=== PATIENT | female | born 1995 | race Caucasian/White ===

== ENCOUNTER 2016-12-24 23:20 | Emergency (ER) | payer SELFPAY ==
[2016-12-25] MEDS ORDERED: ACETAMINOPHEN 325 MG TABLET PO ONE (00:40)
[2016-12-25] MEDS ORDERED: MORPHINE SULFATE 10 MG/ML INJ IV ONE ×2 (00:40→03:38)
[2016-12-25] MEDS ORDERED: ONDANSETRON HCL INJ/PF 4 MG/2 ML SDV IV ONE (00:40)
[2016-12-25] MEDS ORDERED: NORMAL SALINE 1000 ML 1,000 ML IV ONE ×2 (00:41→03:44)
--- NOTE | 2016-12-25 00:45 | ER Document Report ---
ED GI/ - General Chief Complaint: Flank Pain Stated Complaint: ABDOMINAL PAIN Time Seen by Provider: 12/25/16 00:34 Notes: Patient is a 21-year-old female comes emergency department for chief complaint of right flank pain, dysuria, generalized abdominal pain, vomiting, and fever. She states she has had a fever and vomiting for the past 3 days with minimal ability to keep down any fluids. She states she had a similar kidney infection back in March of this year but none prior to that. She denies any daily medications, denies any surgeries, LMP within the past month, she is sexually active with her boyfriend, she does report a whitish vaginal discharge in addition to her symptoms. - Related Data Allergies/Adverse Reactions: No Known Allergies Allergy (Unverified 12/25/16 00:15) Past Medical History - General Information source: Patient - Social History Smoking Status: Never Smoker Frequency of alcohol use: None Drug Abuse: None Lives with: Family Family History: Reviewed & Not Pertinent - Medical History Medical History: Negative Renal/ Medical History: Denies: Hx Peritoneal Dialysis Surgical Hx: Negative - Immunizations Immunizations up to date: Yes Hx Diphtheria, Pertussis, Tetanus Vaccination: Yes Review of Systems - Review of Systems Constitutional: See HPI EENT: No symptoms reported Cardiovascular: No symptoms reported Respiratory: No symptoms reported Gastrointestinal: See HPI Genitourinary: See HPI Female Genitourinary: See HPI Musculoskeletal: No symptoms reported Skin: No symptoms reported Hematologic/Lymphatic: No symptoms reported Neurological/Psychological: No symptoms reported Physical Exam - Vital signs Vitals: Temp Pulse Resp BP Pulse Ox 100.0 F 113 H 18 130/85 H 99 12/25/16 00:12 12/25/16 00:12 12/25/16 00:12 12/25/16 00:12 12/25/16 00:12 Interpretation: Normal - General General appearance: Other - Patient flushed and somewhat ill-appearing - HEENT Head: Normocephalic, Atraumatic Eyes: Normal Pupils: PERRL - Respiratory Respiratory status: No respiratory distress Chest status: Nontender Breath sounds: Normal Chest palpation: Normal - Cardiovascular Rhythm: Regular, Tachycardia Heart sounds: Normal auscultation, S1 appreciated, S2 appreciated Murmur: No - Abdominal Inspection: Normal Distension: No distension Bowel sounds: Normal Tenderness: Tender - Mild generalized abdominal tenderness, nonspecific, no guarding Organomegaly: No organomegaly - Back Back: Tender, CVA tenderness - Right-sided CVA tenderness - Extremities General upper extremity: Normal inspection, Nontender, Normal color, Normal ROM , Normal temperature General lower extremity: Normal inspection, Nontender, Normal color, Normal ROM , Normal temperature, Normal weight bearing. No: Adam's sign - Neurological Neuro grossly intact: Yes Cognition: Normal Orientation: AAOx4 Pilgrim Coma Scale Eye Opening: Spontaneous Nelda Coma Scale Verbal: Oriented Pilgrim Coma Scale Motor: Obeys Commands Nelda Coma Scale Total: 15 Speech: Normal Motor strength normal: LUE, RUE, LLE, RLE Sensory: Normal - Psychological Associated symptoms: Normal affect, Normal mood - Skin Skin Temperature: Warm Skin Moisture: Dry Skin Color: Flushed Course - Re-evaluation Re-evalutation: Patient febrile, tachycardic, has right-sided CVA tenderness, mild generalized abdominal pain, she is ill-appearing. After IV fluids, Tylenol, pain medication, antibiotics patient is smiling, well- appearing, states she feels much better. She is tolerating p.o. CBC shows leukocytosis without bandemia, chemistry generally unremarkable, lactic acid is not elevated, Urinalysis shows specific infection with nitrates, white blood cells, bacteria. Urine culture placed. Given Rocephin already. Pelvic examination unremarkable no evidence of PID. Low suspicion of obstructive stone based on patient's history of the same, lack of bleeding, lack of personal or family history of kidney stones. I discussed with patient and mother in detail. Request is to go home. Because patient is young, otherwise healthy, no evidence of sepsis, stable vital signs, patient will be discharged with cephalexin, symptom management, return precautions. Patient and mother state understanding and agreement. - Vital Signs Vital signs: Temp Pulse Resp BP Pulse Ox 100 F 113 H 20 121/74 100 12/25/16 04:48 12/25/16 00:12 12/25/16 04:48 12/25/16 04:48 12/25/16 04:48 - Laboratory Result Diagrams: 12/25/16 00:49 12/25/16 00:49 Laboratory results interpreted by me: 12/25/16 12/25/16 12/25/16 00:49 00:49 00:49 WBC 17.0 H Lymphocytes % 10.3 L Monocytes % 17.5 H Absolute Neutrophils 12.2 H Absolute Monocytes 3.0 H Total Protein 8.3 H Urine Protein 30 H Urine Ketones TRACE H Urine Blood LARGE H Urine Nitrite POSITIVE H Ur Leukocyte Esterase SMALL H Discharge - Discharge Clinical Impression: Fever Qualifiers: Fever type: unspecified Qualified Code(s): R50.9 - Fever, unspecified Vomiting Qualifiers: Vomiting type: unspecified Vomiting Intractability: non-intractable Nausea presence: with nausea Qualified Code(s): R11.2 - Nausea with vomiting, unspecified Urinary tract infection Qualifiers: Urinary tract infection type: site unspecified Hematuria presence: without hematuria Qualified Code(s): N39.0 - Urinary tract infection, site not specified Condition: Stable Disposition: HOME, SELF-CARE Additional Instructions: Your workup shows a urinary tract infection, appears to be a kidney infection ( pyelonephritis), please take the Keflex antibiotics as prescribed, take the Phenergan if needed for nausea, take the morphine if needed for pain, take Tylenol for chills/fever, rest and drink plenty of fluids. Follow-up with primary care. Return to the emergency department for any concerning or worsening symptoms including returned or uncontrolled vomiting, worsening pain, spiking fever, or any other concerning symptoms. Prescriptions: Morphine Sulfate [Morphine Ir 15 Mg Tablet] 15 mg PO Q4HP PRN #12 tablet PRN Reason: Cephalexin Monohydrate [Keflex 500 mg Capsule] 500 mg PO QID #28 capsule Promethazine HCl [Phenergan 25 mg Tablet] 1 - 2 tab PO Q6H PRN #15 tablet PRN Reason: Forms: Return to Work
[2016-12-25 01:14] LABS: ABSOLUTE BASOPHILS # (AUTO) 0.1 10^3/uL (0.0-0.2); ABSOLUTE EOSINOPHILS # (AUTO) 0.1 10^3/uL (0.0-0.6); ABSOLUTE LYMPHOCYTES (AUTO) 1.7 10^3/uL (0.5-4.7); ABSOLUTE NEUT (AUTO) 12.2 10^3/uL (1.7-8.2); BASOPHILS % (AUTO) 0.3 % (0-2); EOSINOPHILS % (AUTO) 0.3 % (0-6); HEMATOCRIT 41.8 % (36.0-47.0); HGB HCT DIFFERENCE 0.2; LYMPHOCYTES % (AUTO) 10.3 % (13-45); MEAN CORPUSCULAR HEMOGLOBIN 29.8 pg (27.0-33.4); MEAN CORPUSCULAR HGB CONC 33.5 g/dL (32.0-36.0); MEAN CORPUSCULAR VOLUME 89 fl (80-97); MONOCYTES % (AUTO) 17.5 % (3-13); RED CELL DISTRIBUTION WIDTH 13.6 % (11.5-14.0); SEGMENTED NEUTROPHILS % (AUTO) 71.6 % (42-78)
[2016-12-25 01:23] LABS: ALANINE AMINOTRANSFERASE 13 U/L (9-52); ALBUMIN 4.6 g/dL (3.5-5.0); ALKALINE PHOSPHATASE 61 U/L (38-126); ANION GAP 12 (5-19); ASPARTATE AMINO TRANSFERASE 17 U/L (14-36); BILIRUBIN,DIRECT 0.4 mg/dL (0.0-0.4); BILIRUBIN,TOTAL 0.7 mg/dL (0.2-1.3); BLOOD UREA NITROGEN 15 mg/dL (7-20); CALCIUM 9.3 mg/dL (8.4-10.2); CARBON DIOXIDE 28 mmol/L (22-30); CHLORIDE 104 mmol/L (98-107); CREATININE RESULT 0.95 mg/dL (0.52-1.25); GLUCOSE 105 mg/dL (75-110); POTASSIUM 3.9 mmol/L (3.6-5.0); SODIUM 143.8 mmol/L (137-145); TOTAL PROTEIN 8.3 g/dL (6.3-8.2)
[2016-12-25 01:28] LABS: APPEARANCE,URINE SLIGHTLY-CLOUDY; BILIRUBIN,URINE NEGATIVE (NEGATIVE); GLUCOSE, URINE NEGATIVE (NEGATIVE); KETONES,URINE TRACE mg/dL (NEGATIVE); LEUKOCYTE ESTERASE,URINE SMALL (NEGATIVE); NITRITE,URINE POSITIVE (NEGATIVE); PROTEIN,URINE 30 mg/dL (NEGATIVE); URINE SPECIFIC GRAVITY 1.014; UROBILINOGEN,URINE NEGATIVE mg/dL (<2.0)
[2016-12-25 02:00] LABS: VENOUS BLOOD BASE EXCESS 0.8 mmol/L; VENOUS BLOOD HCO3 26.7 mmol/L (20-32); VENOUS BLOOD PCO2 47.1 mmHg (35-63); VENOUS BLOOD PH 7.37 (7.30-7.42)
[2016-12-25] MEDS ORDERED: CEFTRIAXONE 1 GM/D5W RTU 1 GM/50 ML RTUPB IV ONE (02:14)
[2016-12-25 03:15] LABS: CHLAM PCR NOT DETECTED (NOT DETECT)
[2016-12-25 04:53] VITALS: BP 121/74
== END 2016-12-25 04:53 | disposition home or self-care (01) ==
LOC: ER 23:20
DX: N39.0 Urinary tract infection, site not specified (principal); R10.84 Generalized abdominal pain; R11.10 Vomiting, unspecified; R50.9 Fever, unspecified
CPT/HCPCS: 96376; 99284; 96361; 96374; 96375; 36415; 87040; 87086; 87210; 85025; 81025; 87088; 80053; 81001; 87491; 87591; 82803; 83605; J2270; J2405; J7030; J0696; 87186

== ENCOUNTER 2017-05-29 13:55 | Emergency (ER) | payer MEDICAID ==
[2017-05-29 14:10] VITALS: BP 119/78
--- NOTE | 2017-05-29 15:09 | ER Document Report ---
ED Medical Screen (RME) - General Chief Complaint: Vaginal Bleeding Stated Complaint: ABDOMINAL CRAMPS Time Seen by Provider: 05/29/17 15:07 Notes: Patient is presenting with mild abdominal cramping and leakage of fluid. She states she is approximately 18 weeks . She states she had a normal ultrasound at 13 weeks. She states this is her first . [facility] but has not yet gone for her first appointment. TRAVEL OUTSIDE OF THE [place] IN LAST 30 DAYS: No - Related Data Allergies/Adverse Reactions: No Known Allergies Allergy (Verified 05/29/17 13:55) Past Medical History - Social History Chew tobacco use (# tins/day): No Frequency of alcohol use: None Drug Abuse: None Renal/ Medical History: Denies: Hx Peritoneal Dialysis - Immunizations Immunizations up to date: Yes Hx Diphtheria, Pertussis, Tetanus Vaccination: Yes Physical Exam - Vital signs Vitals: Temp Pulse Resp BP Pulse Ox 98.1 F 95 14 119/78 100 05/29/17 14:10 05/29/17 14:10 05/29/17 14:10 05/29/17 14:10 05/29/17 14:10 Course - Vital Signs Vital signs: Temp Pulse Resp BP Pulse Ox 98.1 F 95 14 119/78 100 05/29/17 14:10 05/29/17 14:10 05/29/17 14:10 05/29/17 14:10 05/29/17 14:10
[2017-05-29 16:07] LABS: ABSOLUTE EOSINOPHILS # (AUTO) 0.1 10^3/uL (0.0-0.6); ABSOLUTE LYMPHOCYTES (AUTO) 2.1 10^3/uL (0.5-4.7); ABSOLUTE MONOCYTES (AUTO) 0.6 10^3/uL (0.1-1.4); ABSOLUTE NEUT (AUTO) 8.5 10^3/uL (1.7-8.2); BASOPHILS % (AUTO) 0.4 % (0-2); EOSINOPHILS % (AUTO) 0.7 % (0-6); HEMATOCRIT 37.7 % (36.0-47.0); HEMOGLOBIN 12.7 g/dL (12.0-15.5); LYMPHOCYTES % (AUTO) 18.3 % (13-45); MEAN CORPUSCULAR HEMOGLOBIN 29.9 pg (27.0-33.4); MEAN CORPUSCULAR HGB CONC 33.8 g/dL (32.0-36.0); MEAN CORPUSCULAR VOLUME 89 fl (80-97); MONOCYTES % (AUTO) 5.5 % (3-13); PLATELET COUNT 279 10^3/uL (150-450); RED BLOOD COUNT 4.26 10^6/uL (3.72-5.28); RED CELL DISTRIBUTION WIDTH 13.1 % (11.5-14.0); SEGMENTED NEUTROPHILS % (AUTO) 75.1 % (42-78); TOTAL CELLS COUNTED % (AUTO) 100 %; WHITE BLOOD COUNT 11.4 10^3/uL (4.0-10.5)
[2017-05-29 16:26] LABS: ALANINE AMINOTRANSFERASE 28 U/L (9-52); ALBUMIN 4.6 g/dL (3.5-5.0); ALKALINE PHOSPHATASE 37 U/L (38-126); ANION GAP 11 (5-19); ASPARTATE AMINO TRANSFERASE 20 U/L (14-36); BILIRUBIN,DIRECT 0.1 mg/dL (0.0-0.4); BILIRUBIN,TOTAL 0.4 mg/dL (0.2-1.3); BLOOD UREA NITROGEN 6 mg/dL (7-20); CARBON DIOXIDE 25 mmol/L (22-30); CHLORIDE 103 mmol/L (98-107); GLUCOSE 76 mg/dL (75-110); SODIUM 139.1 mmol/L (137-145); TOTAL PROTEIN 7.6 g/dL (6.3-8.2)
--- NOTE | 2017-05-29 17:28 | ER Document Report ---
ED GI/ - General Mode of Arrival: Ambulatory Information source: Patient TRAVEL OUTSIDE OF THE [place] IN LAST 30 DAYS: No <GALDINO ALANIZ - Last Filed: 05/29/17 18:39> <BELLA SCHAEFER - Last Filed: 06/01/17 09:30> - General Chief Complaint: Vaginal Bleeding Stated Complaint: ABDOMINAL CRAMPS Time Seen by Provider: 05/29/17 15:07 Notes: Patient is a 22-year-old female that is 18 weeks () who presents to the emergency department today with complaints of "vaginal leakage" with associated lower abdominal cramping and lightheadedness. Patient adamantly denies any vaginal bleeding. Patient states on May 17 she was diagnosed with bacterial vaginosis and started on Flagyl. Patient states that 2 days ago the vaginal discharge that she had been having with the BV made a "distinct change" although she is unable to describe said change. Patient states her discharge now is clear and that it "smells sweet". Patient states she has "been soaking through clothes today". Patient states she had a formal ultrasound at 13 weeks showing no abnormalities to her knowledge. Patient states she has no OB follow- up at this point however she does mention that she has [facility] so this is unclear. Patient states her last menstrual period was January 24. Patient denies any vaginal trauma or intercourse, vaginal bleeding, or fevers. (GALDINO ALANIZ) - Related Data Allergies/Adverse Reactions: No Known Allergies Allergy (Verified 05/29/17 13:55) Past Medical History - General Information source: Patient - Social History Smoking Status: Former Smoker Chew tobacco use (# tins/day): No Frequency of alcohol use: None Drug Abuse: None Lives with: Family Family History: Reviewed & Not Pertinent Patient has suicidal ideation: No Patient has homicidal ideation: No - Medical History Medical History: Negative Surgical Hx: Negative - Immunizations Immunizations up to date: Yes Hx Diphtheria, Pertussis, Tetanus Vaccination: Yes <GALDINO ALANIZ - Last Filed: 05/29/17 18:39> Review of Systems - Review of Systems Constitutional: denies: Fever EENT: No symptoms reported Cardiovascular: See HPI, Lightheaded Respiratory: No symptoms reported Gastrointestinal: See HPI, Abdominal pain Genitourinary: No symptoms reported Female Genitourinary: See HPI, Last menstrual period - Jan 24, - 18 weeks, Vaginal discharge. denies: Vaginal bleeding Musculoskeletal: No symptoms reported Skin: No symptoms reported Hematologic/Lymphatic: No symptoms reported Neurological/Psychological: No symptoms reported -: Yes All other systems reviewed and negative <GALDINO ALANIZ - Last Filed: 05/29/17 18:39> Physical Exam <GALDINO ALANIZ - Last Filed: 05/29/17 18:39> <BELLA SCHAEFER - Last Filed: 06/01/17 09:30> - Vital signs Vitals: Temp Pulse Resp BP Pulse Ox 98.1 F 95 14 119/78 100 05/29/17 14:10 05/29/17 14:10 05/29/17 14:10 05/29/17 14:10 05/29/17 14:10 - Notes Notes: Physical Exam: General: Alert, appears well. HEENT: Normocephalic. Atraumatic. PERRL. Extraocular movements intact. Oropharynx clear. Neck: Supple. Non-tender. Respiratory: No respiratory distress. Clear and equal breath sounds bilaterally. Cardiovascular: Regular rate and rhythm. Abdominal: Pelvic tenderness with palpation. No distension. Normal Bowel Sounds. Back: Non-tender. No deformity or step off. Extremities: Moves all four extremities. Upper extremities: Normal inspection. Normal ROM. Lower extremities: Normal inspection. No edema. Normal ROM. Neurological: Normal cognition. AAOx4. Normal speech. Psychological: Normal affect. Normal Mood. Skin: Warm. Dry. Normal color. (GALDINO ALANIZ) Course - Laboratory Result Diagrams: 05/29/17 15:50 05/29/17 15:50 <GALDINO ALANIZ - Last Filed: 05/29/17 18:39> - Laboratory Result Diagrams: 05/29/17 15:50 05/29/17 15:50 <BELLA SCHAEFER - Last Filed: 06/01/17 09:30> - Re-evaluation Re-evalutation: 05/29/17 18:40 Bedside ultrasound revealed normal heart tones with movement. (GALDINO ALANIZ) 05/29/17 19:04 Patient denied any vaginal bleeding just copious amounts of thin discharge. Patient has 4+ bacteria was recently treated for bacterial vaginosis finish antibiotics last week of Flagyl. Patient testing shows no ferning indicative of no amniotic fluid leak. Prior discuss finalized results patient left stated she was hungry and did not want to stay any longer. I was unable discussed with patient as I had a patient in V. tach and were dealing with more critical issues at the time. I was unable to fully disposition patient or provide final recommendations (BELLA SCHAEFER) - Vital Signs Vital signs: Temp Pulse Resp BP Pulse Ox 98.1 F 95 14 119/78 100 05/29/17 14:10 05/29/17 14:10 05/29/17 14:10 05/29/17 14:10 05/29/17 14:10 - Laboratory Laboratory results interpreted by me: 05/29/17 05/29/17 05/29/17 15:50 15:50 15:50 WBC 11.4 H Absolute Neutrophils 8.5 H BUN 6 L Alkaline Phosphatase 37 L Urine Ketones 20 H Discharge <GALDINO ALANIZ - Last Filed: 05/29/17 18:39> <BELLA SCHAEFER - Last Filed: 06/01/17 09:30> - Discharge Clinical Impression: Vaginal discharge during Qualifiers: Trimester: second trimester Qualified Code(s): O26.892 - Other specified related conditions, second trimester Condition: Good Disposition: ELOPED Scribe Attestation: 06/01/17 09:30 I personally performed the services described in the documentation, reviewed and edited the documentation which was dictated to the scribe in my presence, and it accurately records my words and actions. (BELLA SCHAEFER) Scribe Documentation - Scribe Written by Bala:: Bala Gonzalez, 05/29/2017 1848 acting as scribe for :: Chito <GALDINO ALANIZ - Last Filed: 05/29/17 18:39>
[2017-05-29 18:35] LABS: BACTERIA (WET MOUNT) 4+ BACTERIA SEEN; EPITHELIALS (WET MOUNT) 3+ EPITHELIALS SEEN; RBCS (WET MOUNT) NO RBCS SEEN; T.VAGINALIS (WET MOUNT) NO TRICHOMONAS SEEN; WBCS (WET MOUNT) FEW WBCS SEEN; YEAST (WET MOUNT) NO YEAST SEEN
[2017-05-29 18:44] LABS: APPEARANCE,URINE SLIGHTLY-CLOUDY; BILIRUBIN,URINE NEGATIVE (NEGATIVE); COLOR,URINE YELLOW; GLUCOSE, URINE NEGATIVE (NEGATIVE); KETONES,URINE 20 mg/dL (NEGATIVE); LEUKOCYTE ESTERASE,URINE NEGATIVE (NEGATIVE); NITRITE,URINE NEGATIVE (NEGATIVE); PROTEIN,URINE NEGATIVE (NEGATIVE); URINE SPECIFIC GRAVITY 1.011; UROBILINOGEN,URINE NEGATIVE mg/dL (<2.0)
== END 2017-05-29 19:10 | disposition left against medical advice (07) ==
LOC: ER 13:55
DX: O26.892 Other specified pregnancy related conditions, second trimester (principal); N89.8 Other specified noninflammatory disorders of vagina; R10.30 Lower abdominal pain, unspecified; Z3A.18 18 weeks gestation of pregnancy; Z87.891 Personal history of nicotine dependence
CPT/HCPCS: 99281; 86900; 86901; 36415; 87210; 85025; 80053; 81001; Q0114

== ENCOUNTER 2017-10-25 06:14 | Inpatient (IN) | payer MEDICAID ==
[2017-10-24 11:54] LABS: ABSOLUTE EOSINOPHILS # (AUTO) 0.2 10^3/uL (0.0-0.6); ABSOLUTE LYMPHOCYTES (AUTO) 2.2 10^3/uL (0.5-4.7); ABSOLUTE MONOCYTES (AUTO) 1.1 10^3/uL (0.1-1.4); ABSOLUTE NEUT (AUTO) 8.6 10^3/uL (1.7-8.2); BASOPHILS % (AUTO) 0.2 % (0-2); EOSINOPHILS % (AUTO) 1.4 % (0-6); HEMATOCRIT 32.5 % (36.0-47.0); MEAN CORPUSCULAR HEMOGLOBIN 29.4 pg (27.0-33.4); MEAN CORPUSCULAR VOLUME 86 fl (80-97); MONOCYTES % (AUTO) 8.8 % (3-13); PLATELET COUNT 239 10^3/uL (150-450); RED BLOOD COUNT 3.76 10^6/uL (3.72-5.28); RED CELL DISTRIBUTION WIDTH 13.1 % (11.5-14.0); SEGMENTED NEUTROPHILS % (AUTO) 71.6 % (42-78); TOTAL CELLS COUNTED % (AUTO) 100 %
[2017-10-24 12:00] LABS: AMORPHOUS SEDIMENT,URINE TRACE /HPF; APPEARANCE,URINE CLOUDY; BILIRUBIN,URINE NEGATIVE (NEGATIVE); COLOR,URINE YELLOW; GLUCOSE, URINE NEGATIVE (NEGATIVE); KETONES,URINE NEGATIVE (NEGATIVE); LEUKOCYTE ESTERASE,URINE MODERATE (NEGATIVE); NITRITE,URINE NEGATIVE (NEGATIVE); PROTEIN,URINE NEGATIVE (NEGATIVE); URINE SPECIFIC GRAVITY 1.011; UROBILINOGEN,URINE NEGATIVE mg/dL (<2.0)
[2017-10-24 12:11] LABS: URINE AMPHETAMINES SCREEN NEGATIVE; URINE BARBITURATES SCREEN NEGATIVE; URINE BENZODIAZEPINES SCREEN NEGATIVE; URINE COCAINE SCREEN NEGATIVE; URINE MARIJUANA (THC) SCREEN NEGATIVE; URINE METHADONE SCREEN NEGATIVE; URINE PHENCYCLIDINE SCREEN NEGATIVE
[~2017-10-25 06:14] MED LIST: CEFAZOLIN 2 GM/D5W RTU 2 GM/50 ML RTUPB IV PRN; LACTATED RINGERS 1000 ML IV PRN; LIDOCAINE 0.5% INJ-PF (5 MG/ML) 50 ML SDV SUBCUT PRN; RINGERS SOLUTION,LACTATED 2,000 ML IV PRN
[2017-10-25] MEDS ORDERED: CEFAZOLIN 1 GM/D5W RTU 2 GM/100 ML RTUPB IV ONE (06:17)
[2017-10-25] MEDS ORDERED: OXYTOCIN 10 UNIT/ML VIAL ONE (07:31)
[2017-10-25] MEDS ORDERED: MIDAZOLAM 2 MG/2 ML INJ ONE (07:32)
[2017-10-25] MEDS ORDERED: EPHEDRINE SULFATE INJ 50 MG/1 ML AMPULE ONE (07:32)
[2017-10-25] MEDS ORDERED: FENTANYL CITRATE INJ/PF 100 MCG/2 ML AMPUL ONE (07:32)
[2017-10-25] MEDS ORDERED: KETOROLAC TROMETHAMINE INJ/PF 30 MG/1 ML SDV ONE (07:32)
[2017-10-25] MEDS ORDERED: OXYTOCIN/NORMAL SALINE 20 UNIT/1,000 ML RTUINJ ONE (07:32)
[2017-10-25] MEDS ORDERED: BUPIVACAINE HCL/DEX-WATER/PF 15 MG/2 ML AMPULE ONE (07:32)
[2017-10-25] MEDS ORDERED: ACETAMINOPHEN 1,000 MG/100 ML RTUPB IV ONE (07:33)
[2017-10-25] MEDS ORDERED: ONDANSETRON HCL INJ/PF 4 MG/2 ML SDV ONE (07:33)
[2017-10-25] MEDS ORDERED: SIMETHICONE 80 MG TAB.CHEW PO PRN (09:58)
[2017-10-25] MEDS ORDERED: ACETAMINOPHEN IV PRN (09:58)
[2017-10-25] MEDS ORDERED: OXYCODONE-ACETAMINOPHEN 5-325 MG TABLET PO PRN ×3 (09:58→10:00)
[2017-10-25] MEDS ORDERED: DIPH/PERTUSS(ACELL)/TETANUS VAC/PF 0.5 ML SYR (>=10YO) IM PRN (09:58)
[2017-10-25] MEDS ORDERED: MEASLES,MUMPS&RUBELLA VACC/PF 0.5 ML VIAL SUBCUT PRN (09:58)
[2017-10-25] MEDS ORDERED: OXYTOCIN/NORMAL SALINE 20 UNIT/1,000 ML RTUINJ IV PRN (09:58)
[2017-10-25] MEDS ORDERED: PROMETHAZINE HCL INJ 25 MG/1 ML VIAL IV PRN (09:58)
[2017-10-25] MEDS ORDERED: ACETAMINOPHEN 325 MG TABLET PO PRN (09:58)
[2017-10-25] MEDS ORDERED: ONDANSETRON HCL INJ/PF 4 MG/2 ML SDV IV PRN (10:00)
[2017-10-25] MEDS ORDERED: DIPHENHYDRAMINE HCL 50 MG/ML VIAL IV PRN (10:00)
[2017-10-25] MEDS ORDERED: FENTANYL CITRATE INJ/PF 100 MCG/2 ML AMPUL IV PRN ×3 (10:00)
[2017-10-25] MEDS ORDERED: MEPERIDINE HCL/PF INJ 25 MG/1 ML DISP.SYRIN IV PRN (10:00)
--- NOTE | 2017-10-25 10:19 | OPERATIVE REPORT E ---
Operative Report NAME: SOURAV GOODMAN : 1995 AGE: 22Y DATE OF SURGERY: 10/25/2017 ROOM: 222 PREOPERATIVE DIAGNOSIS: IUP at 39 weeks, breech presentation. POSTOPERATIVE DIAGNOSIS: IUP at 39 weeks, cephalic presentation. OPERATION: Low-transverse hysterotomy section. SURGEON: KATH CARABALLO M.D. SOFTWARE DESIGN MANAGER: RODGER MOTA, REHABILITATION TECH PRESS WORKER HELPER ANESTHESIA: Dr. Razo with a spinal. FINDINGS: Male in cephalic presentation with Apgars of 8 and 9. ESTIMATED BLOOD LOSS: 600 mL. COMPLICATIONS: None. PROCEDURE IN DETAIL: Patient was taken to the operating room, prepared and draped in a normal sterile fashion in a supine position with a leftward tilt. A transverse skin incision was made with a scalpel and carried through to the underlying layer of fascia with the same scalpel. The fascia was incised in the midline and extended laterally with Pardeep. The fascia was then dissected from the rectus muscle sharply with Pardeep, and the rectus muscle was divided. The peritoneal cavity was entered bluntly with good visualization of the bladder and the uterus. The bladder blade was inserted. The hysterotomy was nicked with a scalpel and extended laterally with surgeon finger fracture. The infant at this point was discovered to not be in breech presentation but to be actually in cephalic presentation. The head was grasped and the was delivered atraumatically. The nose and mouth were suctioned with a suction bulb, the cord was clamped and cut, and handed off to awaiting pediatricians. The cord blood was collected and the placenta was removed manually. The uterus was exteriorized and cleared of clots and debris. The hysterotomy was closed with 0 Monocryl in a running, locked fashion. A second layer of the same suture was used to imbricate to ensure hemostasis. The uterus was then returned to the abdomen. Peritoneal cavity was cleared of clots and debris. The rectus muscle and peritoneum were reapproximated with a mattress stitch of 2-0 chromic. The fascia was closed with 0 Vicryl. The subcutaneous layer was closed with plain catgut, and the skin was closed with 4-0 Vicryl. The patient tolerated the procedure well. Sponge, lap, and needle counts were correct x2, and the patient was taken to recovery in stable condition. DICTATING PHYSICIAN: KATH CARABALLO M.D. [id number] PHY#: [id number] ID: [id number] JOB#: [id number] ACCT: [id number] cc:KATH CARABALLO M.D. > [facility]
[2017-10-25] MEDS: FENTANYL CITRATE INJ/PF 100 MCG/2 ML AMPUL ONE ×2 (11:02→11:31)
[2017-10-25] MEDS ORDERED: IBUPROFEN 800 MG TABLET PO SCH (12:00)
[2017-10-25] MEDS: MORPHINE SULFATE 10 MG/ML INJ IV PRN ×2 (12:42→16:52)
[2017-10-25] MEDS: OXYCODONE-ACETAMINOPHEN 5-325 MG TABLET PO PRN ×3 (13:46→23:39)
[2017-10-25] MEDS ORDERED: KETOROLAC TROMETHAMINE INJ/PF 30 MG/1 ML SDV IV SCH (14:00)
[2017-10-25] MEDS: DOCUSATE SODIUM 100 MG CAPSULE PO SCH ×2 (15:57→18:46)
[2017-10-25] MEDS: PRENATAL VITAMIN W DHA CAPSULE PO SCH (15:57)
[2017-10-25] MEDS: KETOROLAC TROMETHAMINE INJ/PF 30 MG/1 ML SDV IV SCH (18:47)
[2017-10-26] MEDS: KETOROLAC TROMETHAMINE INJ/PF 30 MG/1 ML SDV IV SCH (01:59)
[2017-10-26] MEDS: IBUPROFEN 800 MG TABLET PO SCH ×4 (05:02→23:50)
[2017-10-26] MEDS: OXYCODONE-ACETAMINOPHEN 5-325 MG TABLET PO PRN ×4 (05:02→23:51)
[2017-10-26 07:31] LABS: HEMATOCRIT 30.4 % (36.0-47.0); HEMOGLOBIN 10.6 g/dL (12.0-15.5); MEAN CORPUSCULAR HGB CONC 34.9 g/dL (32.0-36.0); MEAN CORPUSCULAR VOLUME 86 fl (80-97); PLATELET COUNT 190 10^3/uL (150-450); RED BLOOD COUNT 3.53 10^6/uL (3.72-5.28); RED CELL DISTRIBUTION WIDTH 12.9 % (11.5-14.0); WHITE BLOOD COUNT 14.5 10^3/uL (4.0-10.5)
--- NOTE | 2017-10-26 09:31 | PDOC PROGRESS REPORT ---
Subjective-OB Progress Note for:: 10/26/17 Subjective: Pt doing well, no concerns. She reports light bleeding, reg diet, no difficulty voiding and + flatus. Physical Exam (OB) Vital Signs: Temp Pulse Resp BP Pulse Ox 97.8 F 81 16 110/69 97 10/26/17 09:04 10/26/17 09:04 10/26/17 09:04 10/26/17 09:04 10/26/17 09:04 Intake & Output 10/25/17 10/26/17 10/27/17 06:59 06:59 06:59 Intake Total 2100 1000 Output Total 2606 Balance -506 1000 Weight 81.4 kg - PIH/Pre-Eclampsia DTR's: 2 + Clonus: Negative Headache: Absent Epigastric Pain: No Visual Changes: No - Dressing Removed: Yes Incision: Dressing - Bilateral Tubal Ligation Dressing Removed: No - opsite Site: Well Approximated - Lochia Lochia Amount: Scant < 10 ml Lochia Color: Rubra/Red - Abdomen Description: Soft Hernia Present: No Fundal Description: Firm, Midline Fundal Height: u/u - u/2 Objective-Diagnostic Laboratory: 10/26/17 06:56 10/26/17 10/26/17 06:56 06:56 WBC 14.5 H RBC 3.53 L Hgb 10.6 L Hct 30.4 L MCV 86 MCH 30.0 MCHC 34.9 RDW 12.9 Plt Count 190 Blood Type A NEGATIVE Assessment and Plan(PN) - Assessment and Plan (1) delivery delivered Is this a current diagnosis for this admission?: Yes - Time Spent with Patient Time with patient: Less than 15 minutes Medications reviewed and adjusted accordingly: Yes - Disposition Anticipated Discharge: Home Within: within 24 hours
[2017-10-26] MEDS: DOCUSATE SODIUM 100 MG CAPSULE PO SCH ×2 (10:41→18:21)
[2017-10-26] MEDS: PRENATAL VITAMIN W DHA CAPSULE PO SCH (10:41)
[2017-10-27] MEDS: IBUPROFEN 800 MG TABLET PO SCH ×2 (05:28→12:02)
[2017-10-27] MEDS: OXYCODONE-ACETAMINOPHEN 5-325 MG TABLET PO PRN ×3 (05:29→13:57)
[2017-10-27] MEDS: DOCUSATE SODIUM 100 MG CAPSULE PO SCH (09:19)
[2017-10-27] MEDS: PRENATAL VITAMIN W DHA CAPSULE PO SCH (09:19)
--- NOTE | 2017-10-27 09:43 | PDOC DISCHARGE SUMMARY ---
Final Diagnosis Discharge Date: 10/27/17 Discharge Data - Discharge Medication Prescriptions: Ibuprofen [Motrin 800 mg Tablet] 800 mg PO Q6HP PRN #60 tablet PRN Reason: Oxycodone HCl/Acetaminophen [Percocet 5-325 mg Tablet] 1 tab PO Q4HP PRN #30 tablet PRN Reason: Home Medications: No115/Iron/Folic Acid [ 19 Chewable Tablet] 1 each PO DAILY Ibuprofen [Motrin 800 mg Tablet] 800 mg PO Q6HP PRN #60 tablet 10/27/17 Oxycodone HCl/Acetaminophen [Percocet 5-325 mg Tablet] 1 tab PO Q4HP PRN #30 tablet 10/27/17 Reason(s) for Admission: Ceasarean Section-Primary Procedures: NST Intrapartum Procedure(s): : Low Cervical, Transverse - Diagnosis Test Laboratory: Temp Pulse Resp BP Pulse Ox 98.3 F 85 18 116/61 96 10/27/17 08:21 10/27/17 08:21 10/27/17 08:21 10/27/17 08:21 10/27/17 08:21 10/24/17 10/24/17 10/26/17 10:55 11:00 06:56 RBC 3.76 3.53 L Hgb 11.0 L 10.6 L Hct 32.5 L 30.4 L Urine Opiates Screen NEGATIVE - Discharge information/Instructions Discharge Activity: Balance Activity w/Rest, No Lifting/Push/Pulling, Pelvic Rest, No tub bath Discharge Diet: Regular Disposition: HOME, SELF-CARE Follow up with: [facility] in: 1, Weeks
[2017-10-27 13:25] VITALS: BP 107/69
== END 2017-10-27 14:30 | disposition home or self-care (01) | DRG 766 ==
LOC: 2S 06:14
PROVIDERS: ADMIT Obstetrics & Gynecology; ATTEND Obstetrics & Gynecology
PROC: 4A1HXCZ Monitoring of Products of Conception, Cardiac Rate, External Approach (ICD-10-PCS; 2017-10-25)
PROC: 10D00Z1 Extraction of Products of Conception, Low, Open Approach (ICD-10-PCS; principal; 2017-10-25 09:00)
PROC: 3E0234Z Introduction of Serum, Toxoid and Vaccine into Muscle, Percutaneous Approach (ICD-10-PCS; 2017-10-27)
DX: O26.893 Other specified pregnancy related conditions, third trimester (principal); O99.334 Smoking (tobacco) complicating childbirth; F17.200 Nicotine dependence, unspecified, uncomplicated; Z3A.39 39 weeks gestation of pregnancy; Z67.91 Unspecified blood type, Rh negative; Z37.0 Single live birth
CPT/HCPCS: 1961; 36415; 59025; 80307; 81001; 85025; 85027; 85461; 86850; 86870; 86900; 86901; 94799; J0131; J0690; J1885; J2250; J2270; J2405; J2590; J2790; J3010; J3490; J7120

== ENCOUNTER 2018-10-06 16:46 | Emergency (ER) | payer SELFPAY ==
[2018-10-06] MEDS ORDERED: ASPIRIN 81 MG TABLET, CHEWABLE PO ONE (17:20)
--- NOTE | 2018-10-06 17:23 | ER Document Report ---
ED Medical Screen (RME) - General Chief Complaint: Arrhythmia Stated Complaint: CHEST PAIN Time Seen by Provider: 10/06/18 17:20 Mode of Arrival: Ambulatory Information source: Patient Notes: This 23-year-old female presents emergency department with complaints of chest pain sharp constant to the left side of her chest for the last couple hours. She reports is been making her nauseated. Denies recent trip. Denies history of cardiac disease. Admits history of panic attacks. Reports she had a heart murmur when she was a baby. Reports her mother and her mgf father both had heart attacks at a young age. Patient denies recent trip. Denies drinking energy drinks occasionally drinks a monster drink. Denies drug use. EKG shows sinus tach Patient left side of her chest is tender to palpate. Respiratory rate even and unlabored. I have greeted and performed a rapid initial assessment of this patient. A comprehensive ED assessment and evaluation of the patient, analysis of test results and completion of the medical decision making process will be conducted by additional ED providers. Dictation of this chart was performed using voice recognition software; therefore, there may be some unintended grammatical errors. TRAVEL OUTSIDE OF THE [place] IN LAST 30 DAYS: No - Related Data Allergies/Adverse Reactions: carrot Allergy (Verified 10/06/18 16:48) Difficulty swallowing, "raw mouth" diphenhydramine [From Benadryl] Allergy (Verified 10/06/18 16:48) Itching, rash, aggitaton prochlorperazine [From Compazine] Allergy (Verified 10/06/18 16:48) Difficulty breathing, hives Past Medical History - Social History Chew tobacco use (# tins/day): No Frequency of alcohol use: None Drug Abuse: None - Past Medical History Cardiac Medical History: Reports: Hx Heart Murmur Denies: Hx Hypertension Neurological Medical History: Denies: Hx Cerebrovascular Accident, Hx Seizures Renal/ Medical History: Reports: Hx Ovarian Cysts, Hx Pelvic Inflammatory Disease - Treated for in 2016. Denies: Hx Kidney Stones, Hx Peritoneal Dialysis Malignancy Medical History: Denies: Hx Breast Cancer, Hx Cervical Cancer, Hx Ovarian Cancer GI Medical History: Reports: Hx Gastroesophageal Reflux Disease - gestational. Denies: Hx Hiatal Hernia, Hx Ulcer Psychiatric Medical History: Reports: Hx Post Traumatic Stress Disorder - As a child, no issues at this time Denies: Hx Bipolar Disorder, Hx Depression, Hx Schizophrenia Infectious Medical History: Denies: Hx HIV - Immunizations Immunizations up to date: Yes Hx Diphtheria, Pertussis, Tetanus Vaccination: Yes History of Influenza Vaccine for 12/2016 - 05/2017 Season: No Physical Exam - Vital signs Vitals: Temp Pulse Resp BP Pulse Ox 98.5 F 120 H 18 122/78 100 10/06/18 16:52 10/06/18 16:52 10/06/18 16:52 10/06/18 16:52 10/06/18 16:52 Course - Vital Signs Vital signs: Temp Pulse Resp BP Pulse Ox 98.5 F 120 H 18 122/78 100 10/06/18 16:52 10/06/18 16:52 10/06/18 16:52 10/06/18 16:52 10/06/18 16:52
[2018-10-06 17:45] LABS: ABSOLUTE BASOPHILS # (AUTO) 0.1 10^3/uL (0.0-0.2); ABSOLUTE EOSINOPHILS # (AUTO) 0.3 10^3/uL (0.0-0.6); ABSOLUTE LYMPHOCYTES (AUTO) 3.4 10^3/uL (0.5-4.7); ABSOLUTE MONOCYTES (AUTO) 0.8 10^3/uL (0.1-1.4); ABSOLUTE NEUT (AUTO) 6.8 10^3/uL (1.7-8.2); BASOPHILS % (AUTO) 0.5 % (0-2); EOSINOPHILS % (AUTO) 2.4 % (0-6); HEMATOCRIT 43.6 % (36.0-47.0); HEMOGLOBIN 14.6 g/dL (12.0-15.5); MEAN CORPUSCULAR HEMOGLOBIN 29.5 pg (27.0-33.4); MEAN CORPUSCULAR HGB CONC 33.5 g/dL (32.0-36.0); MEAN CORPUSCULAR VOLUME 88 fl (80-97); MONOCYTES % (AUTO) 6.9 % (3-13); PLATELET COUNT 263 10^3/uL (150-450); RED BLOOD COUNT 4.94 10^6/uL (3.72-5.28); RED CELL DISTRIBUTION WIDTH 13.3 % (11.5-14.0); SEGMENTED NEUTROPHILS % (AUTO) 60.2 % (42-78); TOTAL CELLS COUNTED % (AUTO) 100 %; WHITE BLOOD COUNT 11.3 10^3/uL (4.0-10.5)
[2018-10-06 17:48] LABS: APPEARANCE,URINE SLIGHTLY-CLOUDY; BILIRUBIN,URINE NEGATIVE (NEGATIVE); COLOR,URINE YELLOW; GLUCOSE, URINE NEGATIVE (NEGATIVE); KETONES,URINE NEGATIVE (NEGATIVE); LEUKOCYTE ESTERASE,URINE NEGATIVE (NEGATIVE); NITRITE,URINE NEGATIVE (NEGATIVE); PROTEIN,URINE NEGATIVE (NEGATIVE); URINE SPECIFIC GRAVITY 1.011; UROBILINOGEN,URINE NEGATIVE mg/dL (<2.0)
[2018-10-06 18:04] LABS: ALBUMIN 4.9 g/dL (3.5-5.0); ALKALINE PHOSPHATASE 53 U/L (38-126); ANION GAP 10 (5-19); ASPARTATE AMINO TRANSFERASE 20 U/L (14-36); BILIRUBIN,DIRECT 0.3 mg/dL (0.0-0.4); BILIRUBIN,TOTAL 0.4 mg/dL (0.2-1.3); BLOOD UREA NITROGEN 16 mg/dL (7-20); CALCIUM 10.3 mg/dL (8.4-10.2); CARBON DIOXIDE 29 mmol/L (22-30); CHLORIDE 102 mmol/L (98-107); CREATINE KINASE 83 U/L (30-135); GLUCOSE 103 mg/dL (75-110); POTASSIUM 4.6 mmol/L (3.6-5.0); TOTAL PROTEIN 8.2 g/dL (6.3-8.2)
--- NOTE | 2018-10-06 18:51 | RADIOLOGY REPORT (SQ) ---
EXAM DESCRIPTION: CHEST 2 VIEWS COMPLETED DATE/TIME: 10/06/2018 6:39 pm REASON FOR STUDY: chest pain COMPARISON: None. EXAM PARAMETERS: NUMBER OF VIEWS: two views TECHNIQUE: Digital Frontal and Lateral radiographic views of the chest acquired. RADIATION DOSE: NA LIMITATIONS: none FINDINGS: LUNGS AND PLEURA: No opacities, masses or pneumothorax. No pleural effusion. MEDIASTINUM AND HILAR STRUCTURES: No masses or contour abnormalities. HEART AND VASCULAR STRUCTURES: Heart normal size. No evidence for failure. BONES: No acute findings. HARDWARE: None in the chest. OTHER: No other significant finding. IMPRESSION: NO ACUTE RADIOGRAPHIC FINDING IN THE CHEST. TECHNICAL DOCUMENTATION: JOB ID: [id number] [place]-[id number] [employer]- All Rights Reserved Reading location - IP/workstation name: [email or web address]
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
--- NOTE | 2018-10-07 01:55 | EKG REPORT ---
SEVERITY:- OTHERWISE NORMAL ECG - SINUS TACHYCARDIA BORDERLINE RIGHT AXIS DEVIATION : Confirmed by: Juliette Silva MD 07-Oct-2018 01:55:13
[2018-10-07 04:48] VITALS: BP 126/91
== END 2018-10-06 22:40 | disposition home or self-care (01) ==
LOC: ER 16:46
DX: R07.89 Other chest pain (principal); R00.0 Tachycardia, unspecified; F17.200 Nicotine dependence, unspecified, uncomplicated; Z91.018 Allergy to other foods; Z88.8 Allergy status to other drugs, medicaments and biological substances; Z82.49 Family history of ischemic heart disease and other diseases of the circulatory system
CPT/HCPCS: 36415; 71046; 80053; 81001; 81025; 82550; 84484; 85025; 93005; 93010; 99284

== ENCOUNTER 2018-10-28 16:46 | Emergency (ER) | payer SELFPAY ==
[2018-10-28] MEDS ORDERED: ACETAMINOPHEN 325 MG TABLET PO ONE ×2 (16:51→17:27)
[2018-10-28 17:14] VITALS: BP 116/77
[2018-10-28] MEDS ORDERED: IBUPROFEN 600 MG TABLET PO ONE (17:27)
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
== END 2018-10-28 18:10 | disposition home or self-care (01) ==
LOC: ER 16:46
DX: S69.91XA Unspecified injury of right wrist, hand and finger(s), initial encounter (principal); Y04.0XXA Assault by unarmed brawl or fight, initial encounter
CPT/HCPCS: 99283

== ENCOUNTER 2019-02-19 22:40 | Emergency (ER) | payer SELFPAY ==
[2019-02-19] MEDS ORDERED: ACETAMINOPHEN 325 MG TABLET PO ONE (23:38)
--- NOTE | 2019-02-19 23:42 | ER Document Report ---
ED Medical Screen (RME) - General Chief Complaint: Lower Abdominal Pain Stated Complaint: POSSIBLE CYST, RIGHT LEG PAIN Time Seen by Provider: 02/19/19 23:35 Notes: Patient is a 23-year-old female who presents to the emergency department with a chief complaint of right low back pain. Patient states that she has a history of ovarian cyst and she feels like one had burst about 3 days ago. She states that the pain has gotten progressively worse over the last few days. She states that her menstrual cycles are regular. Patient states that the pain is so bad she dropped to her knees and since then she has had pain radiating from her right knee up. Exam: Tender right lower pelvic area. Tender right knee. I have greeted and performed a rapid initial assessment of this patient. A comprehensive ED assessment and evaluation of the patient, analysis of test results and completion of medical decision making process will be conducted by an additional ED providers. TRAVEL OUTSIDE OF THE [place] IN LAST 30 DAYS: No - Related Data Allergies/Adverse Reactions: carrot Allergy (Verified 02/19/19 23:34) Difficulty swallowing, "raw mouth" diphenhydramine [From Benadryl] Allergy (Verified 02/19/19 23:34) Itching, rash, aggitaton prochlorperazine [From Compazine] Allergy (Verified 02/19/19 23:34) Difficulty breathing, hives Past Medical History - Past Medical History Cardiac Medical History: Reports: Hx Heart Murmur Denies: Hx Hypertension Neurological Medical History: Denies: Hx Cerebrovascular Accident, Hx Seizures Renal/ Medical History: Reports: Hx Ovarian Cysts, Hx Pelvic Inflammatory Disease - Treated for in 2016. Denies: Hx Kidney Stones, Hx Peritoneal Dialysis Malignancy Medical History: Denies: Hx Breast Cancer, Hx Cervical Cancer, Hx Ovarian Cancer GI Medical History: Reports: Hx Gastroesophageal Reflux Disease - gestational. Denies: Hx Hiatal Hernia, Hx Ulcer Psychiatric Medical History: Reports: Hx Post Traumatic Stress Disorder - As a child, no issues at this time Denies: Hx Bipolar Disorder, Hx Depression, Hx Schizophrenia Infectious Medical History: Denies: Hx HIV - Immunizations Immunizations up to date: Yes Hx Diphtheria, Pertussis, Tetanus Vaccination: Yes Physical Exam - Vital signs Vitals: Temp Pulse Resp BP Pulse Ox 98.8 F 108 H 18 126/74 H 100 02/19/19 22:42 02/19/19 22:42 02/19/19 22:42 02/19/19 22:42 02/19/19 22:42 Course - Vital Signs Vital signs: Temp Pulse Resp BP Pulse Ox 98.8 F 108 H 18 126/74 H 100 02/19/19 23:34 02/19/19 23:34 02/19/19 23:34 02/19/19 23:34 02/19/19 23:34
[2019-02-19 23:51] LABS: ABSOLUTE BASOPHILS # (AUTO) 0.1 10^3/uL (0.0-0.2); ABSOLUTE EOSINOPHILS # (AUTO) 0.2 10^3/uL (0.0-0.6); ABSOLUTE LYMPHOCYTES (AUTO) 2.7 10^3/uL (0.5-4.7); ABSOLUTE MONOCYTES (AUTO) 0.7 10^3/uL (0.1-1.4); ABSOLUTE NEUT (AUTO) 8.9 10^3/uL (1.7-8.2); BASOPHILS % (AUTO) 0.4 % (0-2); EOSINOPHILS % (AUTO) 1.6 % (0-6); HEMATOCRIT 40.8 % (36.0-47.0); HEMOGLOBIN 13.6 g/dL (12.0-15.5); LYMPHOCYTES % (AUTO) 21.5 % (13-45); MEAN CORPUSCULAR HEMOGLOBIN 29.7 pg (27.0-33.4); MEAN CORPUSCULAR HGB CONC 33.3 g/dL (32.0-36.0); MEAN CORPUSCULAR VOLUME 89 fl (80-97); MONOCYTES % (AUTO) 5.5 % (3-13); PLATELET COUNT 265 10^3/uL (150-450); RED BLOOD COUNT 4.57 10^6/uL (3.72-5.28); RED CELL DISTRIBUTION WIDTH 13.1 % (11.5-14.0); TOTAL CELLS COUNTED % (AUTO) 100 %; WHITE BLOOD COUNT 12.5 10^3/uL (4.0-10.5)
[2019-02-20 00:06] LABS: ALBUMIN 4.5 g/dL (3.5-5.0); ALKALINE PHOSPHATASE 50 U/L (38-126); ANION GAP 15 (5-19); ASPARTATE AMINO TRANSFERASE 18 U/L (14-36); BILIRUBIN,DIRECT 0.2 mg/dL (0.0-0.4); BILIRUBIN,TOTAL 0.4 mg/dL (0.2-1.3); BLOOD UREA NITROGEN 14 mg/dL (7-20); CALCIUM 9.9 mg/dL (8.4-10.2); CARBON DIOXIDE 21 mmol/L (22-30); CHLORIDE 105 mmol/L (98-107); GLUCOSE 96 mg/dL (75-110)
--- NOTE | 2019-02-20 01:13 | RADIOLOGY REPORT (SQ) ---
EXAM DESCRIPTION: ULTRASOUND PELVIS TRANSABDOMINAL AND TRANSVAGINAL AND DOPPLER EVALUATION OF THE OVARIES CLINICAL HISTORY: Pelvic pain COMPARISON: None available TECHNIQUE: A transabdominal and transvaginal pelvic ultrasound was done, followed by Doppler evaluation of the ovaries. FINDINGS: Examination is technically limited due to overlying bowel gas. Uterus measures 9.8 x 7.0 x 6.5 centimeters. There are no focal lesions in the uterus. There is trace nonspecific free fluid within the cul-de-sac. The endometrium in double layer thickness measures 12 mm. The right ovary measures 3.4 x 2.1 x 2.1 centimeters. The left ovary measures 3.9 x 2.3 x 1.9 centimeters. There is normal color flow and Doppler signal in the right and the left ovary. Focal hyperechoic lesion in the left ovary measures 1.6 x 1.5 x 1.0 cm. There are no focal adnexal masses on either side. However, trace nonspecific free fluid is present in the left adnexal region. IMPRESSION: 1. Hyperechoic lesion in the left ovary measuring up to 1.6 cm. Recommend pelvic US follow-up in 6-12 weeks; if unchanged, continue f/u with US OR MRI with IV contrast - if f/u studies do not confirm endometrioma or dermoid, consider surgical evaluation. If cyst has internal nodule without blood flow/enhancing, recommend pelvic MRI with IV contrast or surgical evaluation. Reference: Radiology 2010 Sep;256(3):943-54. 2. Endometrial echocomplex measures up to 12 mm. Findings are nonspecific and may be physiologic depending on timing of menses. Consider attention on follow-up.
[2019-02-20] MEDS ORDERED: NORMAL SALINE 1000 ML 1,000 ML IV ONE (03:46)
[2019-02-20] MEDS ORDERED: ONDANSETRON HCL INJ/PF 4 MG/2 ML SDV IV ONE (03:46)
[2019-02-20] MEDS ORDERED: MORPHINE SULFATE 10 MG/ML INJ IV ONE (03:46)
--- NOTE | 2019-02-20 03:48 | ER Document Report ---
ED General - General Chief Complaint: Lower Abdominal Pain Stated Complaint: POSSIBLE CYST, RIGHT LEG PAIN Time Seen by Provider: 02/19/19 23:35 TRAVEL OUTSIDE OF THE [place] IN LAST 30 DAYS: No - HPI Notes: Patient is a 23-year-old female with a history of ovarian cyst who presents complaint right lower quadrant abdominal pain that began 3 days ago, but worsened today. Patient states that the pain brought her to her knees on one occasion. Pain does not radiate otherwise. She is not sure if this is an ovarian cyst or not. No surgical history to her abdomen aside from a . Patient also has pain to her right medial upper leg that is been present for 1 day without precipitating event. Patient states that she feels a possible knot or muscle cramp in that area. She has had some associated nausea, but has not eaten or drank anything in the last 24 hours +/-. + smoker. Denies any headac he, fever, URI, sore throat, chest pain, palpitations, syncope, cough, shortness of breath, wheeze, dyspnea, vomiting/diarrhea, urinary retention, dysuria, hematuria, loss of control of bowel or bladder, numbness/tingling, saddle anesthesia, muscle paralysis/weakness, or rash. Denies any prolonged immobilization, distance travel, recent surgery/trauma, personal cancer history, hormone use, or previous DVT/PE. - Related Data Allergies/Adverse Reactions: carrot Allergy (Verified 02/19/19 23:34) Difficulty swallowing, "raw mouth" diphenhydramine [From Benadryl] Allergy (Verified 02/19/19 23:34) Itching, rash, aggitaton prochlorperazine [From Compazine] Allergy (Verified 02/19/19 23:34) Difficulty breathing, hives Past Medical History - Social History Smoking Status: Current Every Day Smoker Family History: Reviewed & Not Pertinent Patient has suicidal ideation: No Patient has homicidal ideation: No - Past Medical History Cardiac Medical History: Reports: Hx Heart Murmur Denies: Hx Hypertension Neurological Medical History: Denies: Hx Cerebrovascular Accident, Hx Seizures Renal/ Medical History: Reports: Hx Ovarian Cysts, Hx Pelvic Inflammatory Disease - Treated for in 2016. Denies: Hx Kidney Stones, Hx Peritoneal Dialysis Malignancy Medical History: Denies: Hx Breast Cancer, Hx Cervical Cancer, Hx Ovarian Cancer GI Medical History: Reports: Hx Gastroesophageal Reflux Disease - gestational. Denies: Hx Hiatal Hernia, Hx Ulcer Psychiatric Medical History: Reports: Hx Post Traumatic Stress Disorder - As a child, no issues at this time Denies: Hx Bipolar Disorder, Hx Depression, Hx Schizophrenia Infectious Medical History: Denies: Hx HIV - Immunizations Immunizations up to date: Yes Hx Diphtheria, Pertussis, Tetanus Vaccination: Yes Review of Systems - Review of Systems -: Yes All other systems reviewed and negative Physical Exam - Vital signs Vitals: Temp Pulse Resp BP Pulse Ox 98.8 F 108 H 18 126/74 H 100 02/19/19 22:42 02/19/19 22:42 02/19/19 22:42 02/19/19 22:42 02/19/19 22:42 - Notes Notes: PHYSICAL EXAMINATION: GENERAL: Well-appearing, well-nourished and in no acute distress. HEAD: Atraumatic, normocephalic. EYES: Pupils equal round and reactive to light, extraocular movements intact, sclera anicteric, conjunctiva are normal. ENT: Nares patent and without discharge. oropharynx clear without exudates. No tonsilar hypertrophy or erythema. Moist mucous membranes. NECK: Normal range of motion, supple without lymphadenopathy LUNGS: Breath sounds clear to auscultation bilaterally and equal. No wheezes rales or rhonchi. HEART: Regular rate and rhythm without murmurs, rubs, gallops. ABDOMEN: Soft, nondistended abdomen. No guarding, no rebound. Normal bowel sounds present. No CVA tenderness bilaterally. + tenderness near [place] > lower pelvic. Francois neg. Musculoskeletal: Rt leg: FROM to passive/active. Strength 5+/5. N/V intact distal. + tenderness medial mid upper leg area. No obvious erythema, warmth, ecchymosis. Extremities: No cyanosis, clubbing, or edema b/l. Peripheral pulses 2+. Capillary refill less than 3 seconds. No LE asymmetry. NEUROLOGICAL: Normal speech, normal gait. PSYCH: Normal mood, normal affect. SKIN: Warm, Dry, normal turgor, no rashes or lesions noted. Course - Re-evaluation Re-evalutation: 02/20/19 05:17 Patient is an afebrile, well-hydrated, 23-year-old female who presents with right lower quadrant pain, unspecified, but on CT does have a large amount of stool in that spot that she is tender. Patient does have a probable UTI with positive nitrites. She also has nonspecific right medial proximal leg pain. Since we cannot get a doppler at this time, pt opted on the option of receiving one dose of lovenox and having the doppler performed during business hours today. I did review with Dr. Jo who is in agreement with plan. We do suspect more of a musculoskeletal etiology to the leg otherwise. Risks/benefits reviewed with use of lovenox. Vitals are acceptable without significant tachycardia, tachypnea, hypoxia. PE is otherwise unremarkable. Patient is nontoxic appearing and is able to tolerate p.o. without difficulty at this time. Labs/imaging otherwise unremarkable. Low suspicion/risk for acute appendicitis, bowel obstruction, acute cholecystitis, acute cholangitis, perforated diverticulitis, incarcerated hernia, pancreatitis, perforated ulcer, peritonitis, sepsis, pelvic inflammatory disease, ectopic , tubo- ovarian abscess, ovarian torsion, or other systemic emergent condition at this time. Patient is aware that her condition can change from initial presentation and she needs to monitor symptoms closely and seek medical attention if any acute changes. Conservative measures otherwise for symptoms. Recheck with OBGYN in 3-5 days. Recheck with your PCM in 3-5 days. Consider consult with a engine tester. Return to the ED with any worsening/concerning symptoms otherwise as reviewed in discharge. Patient is in agreement. - Vital Signs Vital signs: Temp Pulse Resp BP Pulse Ox 98.0 F 88 16 116/64 99 02/20/19 04:46 02/20/19 04:46 02/20/19 04:46 02/20/19 04:46 02/20/19 04:46 - Laboratory Result Diagrams: 02/19/19 23:40 02/19/19 23:40 Laboratory results interpreted by me: 02/19/19 02/19/19 02/20/19 23:40 23:40 04:40 WBC 12.5 H Absolute Neuts (auto) 8.9 H Carbon Dioxide 21 L Urine Ketones TRACE H Urine Nitrite POSITIVE H Discharge - Discharge Clinical Impression: Right leg pain, Right lower quadrant pain, Acute UTI (urinary tract infection) Condition: Stable Disposition: HOME, SELF-CARE Instructions: Cephalexin ([facility]) Additional Instructions: As reviewed you are to have a venous Doppler performed today, but we do suspect most likely etiology of musculoskeletal. Maintain adequate fluid and food intake Healthy diet tylenol if needed Monitor for any worsening symptoms Make sure you are staying hydrated enough to urinate and have normal BM's Recheck with your PCM/ICU SPECIALIST in 3 to 5 days Consider consult with Gastroenterology for ongoing/worsening symptoms Return to the ED with any worsening symptoms and/or development of fever, headache, chest pain, palpitations, syncope, shortness of breath, trouble breathing, abdominal pain, n/v/d, blood in stool/urine, weakness, or other worsening symptoms that are concerning to you. Prescriptions: Cephalexin Monohydrate [Keflex 500 mg Capsule] 500 mg PO TID #21 capsule Ibuprofen [Motrin 800 mg Tablet] 800 mg PO Q8H PRN #15 tab PRN Reason: Ondansetron [Zofran Odt 4 mg Tablet] 1 - 2 tab PO Q4H PRN #15 tab.rapdis PRN Reason: For Nausea/Vomiting Forms: Smoking Cessation Education, Follow-Up Outpatient Testing Referrals: SHUN TREVINO MD [ACTIVE STAFF] - Follow up as needed PAVAN MONTILLA MD [ACTIVE STAFF] - Follow up as needed [facility] [Provider Group] - Follow up as needed
--- NOTE | 2019-02-20 04:49 | RADIOLOGY REPORT (SQ) ---
CT abdomen and pelvis with contrast on 02/20/2019 at 4:16 AM CLINICAL INDICATION: Right lower quadrant pain TECHNIQUE: Multiple axial images are obtained throughout the abdomen and pelvis following the administration of IV contrast, 71 mL of Omnipaque 350 contrast was administered intravenously without complication. This exam was performed according to our departmental dose-optimization program, which includes automated exposure control, adjustment of the mA and/or kV according to patient size and/or use of iterative reconstruction technique. Total DLP is 536.42 mGy*cm. COMPARISON: None FINDINGS: Abdomen: The lung bases are clear. A few small hepatic cysts are noted. There is tiny nonobstructing stone in the lower pole of the left kidney. Solid abdominal organs are otherwise unremarkable. There is no abdominal adenopathy. There is no free fluid or free air within the abdomen. There is mild gaseous distention of the colon. The abdominal portion of the GI tract is otherwise unremarkable. Pelvis: There is no free fluid in the pelvis. Pelvic organs appear unremarkable by CT. Pelvic portion of the GI tract including the appendix is unremarkable. There is no pelvic adenopathy. No bony abnormality is noted. IMPRESSION: 1. Tiny nonobstructing left renal stone. 2. No acute abnormality.
[2019-02-20 05:01] LABS: APPEARANCE,URINE CLEAR; BILIRUBIN,URINE NEGATIVE (NEGATIVE); COLOR,URINE YELLOW; GLUCOSE, URINE NEGATIVE (NEGATIVE); KETONES,URINE TRACE mg/dL (NEGATIVE); LEUKOCYTE ESTERASE,URINE NEGATIVE (NEGATIVE); NITRITE,URINE POSITIVE (NEGATIVE); PROTEIN,URINE NEGATIVE (NEGATIVE); URINE SPECIFIC GRAVITY 1.038; UROBILINOGEN,URINE NEGATIVE mg/dL (<2.0)
[2019-02-20] MEDS ORDERED: KETOROLAC TROMETHAMINE INJ/PF 30 MG/1 ML SDV IV ONE (05:05)
[2019-02-20] MEDS ORDERED: ENOXAPARIN SODIUM INJ 60 MG/0.6 ML DISP.SYRIN SUBCUT SCH ×2 (05:30→06:00)
[2019-02-20 06:09] VITALS: BP 103/56
== END 2019-02-20 06:09 | disposition home or self-care (01) ==
LOC: ER 22:40
DX: N39.0 Urinary tract infection, site not specified (principal); R10.31 Right lower quadrant pain; M79.604 Pain in right leg; F17.200 Nicotine dependence, unspecified, uncomplicated
CPT/HCPCS: 99284; 96372; 96361; 96374; 96375; 36415; 84703; 85025; 80053; 81001; 76830; 93976; 74177; J1885; J2270; J2405; J7030; J1650

== ENCOUNTER 2019-11-13 00:11 | Emergency (ER) | payer MEDICAID ==
[2019-11-13] MEDS ORDERED: OXYCODONE HCL IR 5 MG TABLET PO ONE (01:17)
[2019-11-13] MEDS ORDERED: ONDANSETRON 4 MG TAB.RAPDIS PO ONE (01:18)
--- NOTE | 2019-11-13 01:25 | ER Document Report ---
ED Medical Screen (RME) - General Chief Complaint: Pelvic Pain Stated Complaint: LOWER ABDOMINAL PAIN Time Seen by Provider: 11/13/19 01:17 Notes: 24-year-old female with chief complaint of sharp abdominal pain mainly in the right pelvic region that started 4 hours ago. She reports some nausea but denies vomiting, she denies dysuria, vaginal discharge, fever. She ran out of opiates and she is prescribed opiates for endometriosis, today is the first day without it. She reports normal bowel movements. She states she was told there is "something wrong with my uterus and they told me I might need a hysterectomy". She denies any surgeries other than . TRAVEL OUTSIDE OF THE [place] IN LAST 30 DAYS: No - Related Data Allergies/Adverse Reactions: carrot Allergy (Verified 02/19/19 23:34) Difficulty swallowing, "raw mouth" diphenhydramine [From Benadryl] Allergy (Verified 02/19/19 23:34) Itching, rash, aggitaton prochlorperazine [From Compazine] Allergy (Verified 02/19/19 23:34) Difficulty breathing, hives Home Medications: oxycodone, buspar, Past Medical History - Past Medical History Cardiac Medical History: Reports: Hx Heart Murmur Denies: Hx Hypertension Neurological Medical History: Denies: Hx Cerebrovascular Accident, Hx Seizures Renal/ Medical History: Reports: Hx Ovarian Cysts, Hx Pelvic Inflammatory Disease - Treated for in 2016. Denies: Hx Kidney Stones, Hx Peritoneal Dialysis Malignancy Medical History: Denies: Hx Breast Cancer, Hx Cervical Cancer, Hx Ovarian Cancer GI Medical History: Reports: Hx Gastroesophageal Reflux Disease - gestational. Denies: Hx Hiatal Hernia, Hx Ulcer Psychiatric Medical History: Reports: Hx Post Traumatic Stress Disorder - As a child, no issues at this time Denies: Hx Bipolar Disorder, Hx Depression, Hx Schizophrenia Infectious Medical History: Denies: Hx HIV - Immunizations Immunizations up to date: Yes Hx Diphtheria, Pertussis, Tetanus Vaccination: Yes Physical Exam - Vital signs Vitals: Temp Pulse Resp BP Pulse Ox 98.3 F 144 H 20 142/98 H 99 11/13/19 00:17 11/13/19 00:17 11/13/19 00:17 11/13/19 00:11/13/19 00:17 - General General appearance: Other - Patient talkative, does not appear to be in distress although she is holding her abdomen - Abdominal Tenderness: Tender - Diffuse tenderness, nonspecific, somewhat worse in the general lower abdomen. Exam limited by sitting position Course - Re-evaluation Re-evalutation: 11/13/19 01:26 Patient is holding her lower abdomen but she actually does not appear to be in distress. She was initially tachycardic but not as tachycardic on my exam. Unsure if this is opiate withdrawal, abdomen exam is very limited with triage but patient does not appear toxic at this time. Patient will be medicated, work-up pending. I have greeted and performed a rapid initial assessment of this patient. A comprehensive ED assessment and evaluation of the patient, analysis of test results and completion of the medical decision making process will be conducted by additional ED providers. - Vital Signs Vital signs: Temp Pulse Resp BP Pulse Ox 98.3 F 144 H 20 142/98 H 99 11/13/19 00:17 11/13/19 00:17 11/13/19 00:17 11/13/19 00:17 11/13/19 00:17
[2019-11-13 02:26] LABS: ABSOLUTE EOSINOPHILS # (AUTO) 0.2 10^3/uL (0.0-0.6); ABSOLUTE LYMPHOCYTES (AUTO) 3.4 10^3/uL (0.5-4.7); ABSOLUTE MONOCYTES (AUTO) 0.6 10^3/uL (0.1-1.4); ABSOLUTE NEUT (AUTO) 2.9 10^3/uL (1.7-8.2); BASOPHILS % (AUTO) 0.6 % (0-2); HEMATOCRIT 38.6 % (36.0-47.0); HEMOGLOBIN 13.1 g/dL (12.0-15.5); LYMPHOCYTES % (AUTO) 47.9 % (13-45); MEAN CORPUSCULAR HEMOGLOBIN 29.6 pg (27.0-33.4); MEAN CORPUSCULAR HGB CONC 33.8 g/dL (32.0-36.0); MEAN CORPUSCULAR VOLUME 88 fl (80-97); MONOCYTES % (AUTO) 8.4 % (3-13); PLATELET COUNT 303 10^3/uL (150-450); RED CELL DISTRIBUTION WIDTH 13.4 % (11.5-14.0); SEGMENTED NEUTROPHILS % (AUTO) 40.1 % (42-78); TOTAL CELLS COUNTED % (AUTO) 100 %; WHITE BLOOD COUNT 7.2 10^3/uL (4.0-10.5)
[2019-11-13 02:29] LABS: APPEARANCE,URINE SLIGHTLY-CLOUDY; BILIRUBIN,URINE NEGATIVE (NEGATIVE); COLOR,URINE STRAW; GLUCOSE, URINE NEGATIVE (NEGATIVE); KETONES,URINE NEGATIVE (NEGATIVE); LEUKOCYTE ESTERASE,URINE NEGATIVE (NEGATIVE); NITRITE,URINE NEGATIVE (NEGATIVE); PROTEIN,URINE NEGATIVE (NEGATIVE); UROBILINOGEN,URINE NEGATIVE mg/dL (<2.0)
[2019-11-13 02:36] LABS: ALBUMIN 4.4 g/dL (3.5-5.0); ALKALINE PHOSPHATASE 50 U/L (38-126); ANION GAP 5 (5-19); ASPARTATE AMINO TRANSFERASE 24 U/L (14-36); BILIRUBIN,DIRECT 0.2 mg/dL (0.0-0.4); BILIRUBIN,TOTAL 0.4 mg/dL (0.2-1.3); BLOOD UREA NITROGEN 17 mg/dL (7-20); CALCIUM 9.5 mg/dL (8.4-10.2); CARBON DIOXIDE 28 mmol/L (22-30); CHLORIDE 103 mmol/L (98-107); GLUCOSE 101 mg/dL (75-110); POTASSIUM 5.2 mmol/L (3.6-5.0); TOTAL PROTEIN 7.2 g/dL (6.3-8.2)
--- NOTE | 2019-11-13 03:26 | RADIOLOGY REPORT (SQ) ---
Ultrasound pelvis transvaginal on 11/23/2019 at 2:34 AM Clinical indication: Severe pelvic pain COMPARISON: CT from 02/20/2019 FINDINGS: Multiple sonographic images are obtained throughout the pelvis by transvaginal approach, both transverse and sagittal images are obtained. Uterus measures approximately 8.3 x 6.1 x 4.3 cm. Endometrial stripe measures 6 mm which is within normal limits. Uterine myometrium appears homogeneous. The right ovary measures approximately 4.3 x 2.2 x 2.4 cm. Flow is demonstrated within the right ovary. Left ovary measures approximately 3.9 x 2.0 x 1.7 cm. Flow is demonstrated in the left ovary. No adnexal mass or fluid collection is noted. No free fluid is noted. IMPRESSION: Unremarkable exam.
[2019-11-13 05:29] VITALS: BP 113/83
--- NOTE | 2019-11-13 05:34 | ER Document Report ---
ED GI/ - General Chief Complaint: Pelvic Pain Stated Complaint: LOWER ABDOMINAL PAIN Time Seen by Provider: 11/13/19 01:17 Primary Care Provider: BEATRIS ACOSTA MD [Primary Care Provider] - Follow up as needed Notes: Patient is [id number] female with chief complaint of sharp abdominal pain mainly in the right pelvic region that started 4 hours ago. She reports some nausea but denies vomiting, she denies dysuria, vaginal discharge, fever. She ran out of opiates and she is prescribed opiates for endometriosis, today is the first day without it. She reports normal bowel movements. She states she was told there is "something wrong with my uterus and they told me I might need a hysterectomy". She denies any surgeries other than . TRAVEL OUTSIDE OF THE [place] IN LAST 30 DAYS: No - Related Data Allergies/Adverse Reactions: carrot Allergy (Verified 02/19/19 23:34) Difficulty swallowing, "raw mouth" diphenhydramine [From Benadryl] Allergy (Verified 02/19/19 23:34) Itching, rash, aggitaton prochlorperazine [From Compazine] Allergy (Verified 02/19/19 23:34) Difficulty breathing, hives Home Medications: oxycodone, buspar, Past Medical History - General Information source: Patient - Social History Smoking Status: Current Every Day Smoker Drug Abuse: None Lives with: Spouse/Significant other Family History: Reviewed & Not Pertinent - Past Medical History Cardiac Medical History: Reports: Hx Heart Murmur Denies: Hx Hypertension Neurological Medical History: Denies: Hx Cerebrovascular Accident, Hx Seizures Renal/ Medical History: Reports: Hx Ovarian Cysts, Hx Pelvic Inflammatory Disease - Treated for in 2016. Denies: Hx Kidney Stones, Hx Peritoneal Dialysis Malignancy Medical History: Denies: Hx Breast Cancer, Hx Cervical Cancer, Hx Ovarian Cancer GI Medical History: Reports: Hx Gastroesophageal Reflux Disease - gestational. Denies: Hx Hiatal Hernia, Hx Ulcer Psychiatric Medical History: Reports: Hx Post Traumatic Stress Disorder - As a child, no issues at this time Denies: Hx Bipolar Disorder, Hx Depression, Hx Schizophrenia Infectious Medical History: Denies: Hx HIV - Immunizations Immunizations up to date: Yes Hx Diphtheria, Pertussis, Tetanus Vaccination: Yes Review of Systems - Review of Systems Constitutional: No symptoms reported EENT: No symptoms reported Cardiovascular: No symptoms reported Respiratory: No symptoms reported Gastrointestinal: See HPI Genitourinary: See HPI Female Genitourinary: See HPI Musculoskeletal: No symptoms reported Skin: No symptoms reported Hematologic/Lymphatic: No symptoms reported Neurological/Psychological: No symptoms reported Physical Exam - Vital signs Vitals: Temp Pulse Resp BP Pulse Ox 98.3 F 144 H 20 142/98 H 99 11/13/19 00:11/13/19 00:11/13/19 00:11/13/19 00:11/13/19 00:17 - Notes Notes: GENERAL: Alert, interacts well. No acute distress. HEAD: Normocephalic, atraumatic. EYES: Pupils equal, round, and reactive to light. Extraocular movements intact. ENT: Oral mucosa moist, tongue midline. Oropharynx unremarkable. Airway patent. NECK: Full range of motion. Supple. Trachea midline. No lymphadenopathy. LUNGS: Clear to auscultation bilaterally, no wheezes, rales, or rhonchi. No respiratory distress. Non-tender chest wall. HEART: Regular rate and rhythm. No murmur ABDOMEN: Abdomen is slightly distended, generalized tenderness which is nonspecific, no noted areas of guarding or rigidity. Bowel sounds are present. EXTREMITIES: Moves all 4 extremities spontaneously. No edema, normal radial and dorsalis pedis pulses bilaterally. No cyanosis. BACK: no cervical, thoracic, lumbar midline tenderness. No saddle anesthesia, normal distal neurovascular exam. Moves all extremities in full range of motion. NEUROLOGICAL: Alert and oriented x3. Normal speech. Cranial nerves II through XII grossly intact. Strength 5/5 in all extremities. PSYCH: Normal affect, normal mood. SKIN: Warm, dry, normal turgor. No rashes or lesions noted. Course - Re-evaluation Re-evalutation: I saw the patient initially in triage, she did not have any signs of distress, her heart rate in triage was unremarkable, this was rechecked and unremarkable. She has had generalized abdominal tenderness, nonspecific, no guarding. She is questionable mild distention. I suspect opiate induced constipation based on her presentation. CBC, chemistry, urine, test unremarkable. Ultrasound unremarkable with no acute findings. Unfortunately x-ray never got performed and this got significantly delayed, when I reevaluated the patient she states she is ready to leave. I discussed how because of her mildly elevated potassium, recent opiates, negative work-up otherwise, and overall exam that I suspect she has significant stool retention and I recommended an x-ray, possible enema, etc. Patient declined, she states she will give herself an enema, patient will be g iven symptomatic medication for suspected bowel source of her symptoms, she has [facility] follow-up already, I discussed return precautions. Very low suspicion of acute abdomen. Patient states understanding and agreement with plan. - Vital Signs Vital signs: Temp Pulse Resp BP Pulse Ox 98.3 F 72 18 113/83 100 11/13/19 00:17 11/13/19 04:59 11/13/19 04:59 11/13/19 05:10 11/13/19 04:59 - Laboratory Result Diagrams: 11/13/19 02:04 11/13/19 02:04 Laboratory results interpreted by me: 11/13/19 11/13/19 02:04 02:04 Lymph % (Auto) 47.9 H Seg Neutrophils % 40.1 L Sodium 135.6 L Potassium 5.2 H Discharge - Discharge Clinical Impression: Abdominal pain Qualifiers: Abdominal location: generalized Qualified Code(s): R10.84 - Generalized abdominal pain Condition: Stable Disposition: HOME, SELF-CARE Additional Instructions: Your ultrasound, laboratory work-up, and general evaluation are reassuring. Your potassium is slightly high although this will resolve with bowel movements. Based on your evaluation I suspect that your pain is coming from your bowel, I recommend the Bentyl for cramping, Phenergan for nausea, and MiraLAX stool softener. Stronger stool softeners/laxative such as magnesium citrate can also be used. Eat plenty of fiber, exercise. Follow-up with [facility] for additional evaluation and management of your ongoing pain. Return for any concerning symptoms including vomiting, fever, severe worsening pain, or any other concerning symptoms. Prescriptions: Dicyclomine HCl [Bentyl 20 mg Tablet] 20 mg PO QID PRN #20 tablet PRN Reason: Polyethylene Glycol 3350 [Miralax Powder 17 gm/Packet] 1 packet PO DAILY PRN #1 pkg PRN Reason: Promethazine HCl [Phenergan 25 mg Tablet] 25 mg PO Q6H PRN #20 tablet PRN Reason: Forms: Treatment of Relative/Child Referrals: BEATRIS ACOSTA MD [Primary Care Provider] - Follow up as needed
== END 2019-11-13 05:43 | disposition home or self-care (01) ==
LOC: ER 00:11
DX: R10.84 Generalized abdominal pain (principal); R10.2 Pelvic and perineal pain; R10.9 Unspecified abdominal pain; R11.0 Nausea; Z79.899 Other long term (current) drug therapy; Z88.8 Allergy status to other drugs, medicaments and biological substances; F17.200 Nicotine dependence, unspecified, uncomplicated
CPT/HCPCS: 99285; 36415; 83690; 85025; 81025; 80053; 81001; 76830; 93976; S0119; J3490